=== PATIENT | male | born 1925 | race Caucasian/White ===

== ENCOUNTER 2017-03-25 08:24 | Inpatient (IN) ==
--- NOTE | 2017-03-25 13:24 | Diag Imaging Result Doc PS360 ---
EXAM: CHEST-PORTABLE HISTORY: pneumonia TECHNIQUE: Portable AP COMPARISON: 09/16/2015 FINDINGS: The lungs are well expanded. The heart remains mildly enlarged. The vessels are not distended. No definite infiltrates. I believe there is a tiny right pleural effusion versus pleural thickening. IMPRESSION: Mild cardiomegaly. Electronically signed by Dennis Ledbetter 03/25/2017 1:22 PM
--- NOTE | 2017-03-25 13:37 | EKG Report ---
Test Performed on : 03/25/2017 12:31:48 PM Test Reason : new admit Blood Pressure : / mmHG Vent. Rate : 088 BPM Atrial Rate : 088 BPM P-R Int : 280 ms QRS Dur : 088 ms QT Int : 380 ms P-R-T Axes : 024 035 058 degrees QTc Int : 459 ms Sinus rhythm. with 1st degree AV block. Septal infarct , age undetermined Abnormal ECG When compared with ECG of 21-AUG-2012 08:17, OK interval has increased Septal infarct is now present Confirmed by Jaimee BURGESS, Simone Vaca ([id number]) on 03/26/2017 9:59:22 AM
[2017-03-25 14:02] LABS: MCH 26.7 PG (27-31); MCHC 32.5 g/dL (33-37); MCV 82.1 FL (81-99); MPV 9.1 FL (7.4-10.4); RBC 4.87 XMIL (4.7-6.1)
[2017-03-25 14:21] LABS: ALBUMIN 3.8 g/dL (3.5-5.0); POTASSIUM 4.3 mmol/L (3.5-5.1); TOTAL BILIRUBIN 0.35 mg/dL (0.20-1.00)
[2017-03-25] MEDS ORDERED: DUONEB (A & A) INH SCH ×2 (15:00→17:00)
[2017-03-25] MEDS: ZITHROMAX 500 MG/NS 500 MG/250 ML IVPB IV SCH (15:19)
[2017-03-25] MEDS: ROCEPHIN 1 GM in NS 50 ML IV SCH (17:10)
--- NOTE | 2017-03-25 17:53 | HISTORY AND PHYSICAL ---
HISTORY OF PRESENT ILLNESS: Mr. Kapoor is an 89-year-old white gentleman, a resident of [facility], who is admitted with cough with expectoration, shortness of breath. He has had a chest x-ray. He has pneumonia. He has been treated in the [place] [facility] with antibiotics without much help. He has a mild case of dementia. He has severe osteoarthritis in the knees as well as hips and the lumbar spine. He has chronic dermatitis. He has platelet malfunction. Other details of personal, past, and family history are noncontributory. SOCIAL HISTORY: He is a nonsmoker. Does not drink. MEDICATIONS: Vitamin E . Warfarin. Triamcinolone cream. Tamsulosin. multivitamin. Miconazole cream. Levothyroxine for hypothyroidism. REVIEW OF SYSTEMS: Other than shortness of breath and cough is noncontributory. PHYSICAL EXAMINATION: VITAL SIGNS: Reveal temperature is normal. Pulse 88 per minute, respiratory rate 20 per minute, blood pressure 148/86. HEENT: Head normocephalic. Pupils PERRLA. Fundus examination could not be done. Neck supple. JVP normal. ENT examination unremarkable. There is no evidence of lymphadenopathy, thyroid enlargement, pedal edema, calf tenderness, anemia, cyanosis or clubbing. Pedal pulses well felt. BREAST: Normal chest. Normal inspection. LUNGS: Reveal bilateral basilar rales, more on the right side. PMI in the normal position. HEART: Sounds normal. No murmur, gallop or rub noted. ABDOMEN: Nondistended. Hernial orifices normal. No guarding, rigidity, free fluid, masses, or organomegaly. Bowel sounds normal. RECTAL: Deferred. ROR ENGINEER: Higher functions, patient has some intermittent confusion. Cranial nerves normal. Motor and sensory system examination unremarkable. Deep tendon reflexes normal. Plantars downgoing. Skull and spine examination normal. There are no cerebellar signs or signs of meningeal irritation. LOCOMOTOR: Unremarkable. SKIN: Unremarkable. CLINICAL IMPRESSION: Pneumonia on the right lower lobe. The patient has early dementia, platelet dysfunction, chronic dermatitis, osteoarthritis in both knees. PLAN: Plan to get blood cultures and start him on IV antibiotics. cc: Frederick Bedoya MD
[2017-03-25 18:14] LABS: INR 2.3; PROTIME 25.5 Seconds (9.2-11.7)
[2017-03-25] MEDS: ROBITUSSIN-DM PO SCH (18:44)
[2017-03-25] MEDS: HYDROXYZINE PO SCH (18:44)
[2017-03-25] MEDS: SYSTANE EYE DROPS BOTH EYES SCH ×2 (18:45→22:00)
[2017-03-25] MEDS ORDERED: COUMADIN PO SCH (21:00)
[2017-03-25] MEDS: COLACE PO SCH (21:16)
[2017-03-25] MEDS: FLOMAX PO SCH (21:16)
[2017-03-25] MEDS: ARICEPT PO SCH (21:16)
[2017-03-25] MEDS: BAZA ANTIFUNGAL CREAM TOP SCH (21:17)
[2017-03-25] MEDS: CETAPHIL MOISTURIZING LOT TOP SCH (21:17)
[2017-03-25] MEDS: KENALOG 0.1% OINTMENT TOP SCH (21:18)
[2017-03-25] MEDS: DUONEB (A & A) INH SCH (21:30)
[2017-03-26] MEDS: ROBITUSSIN-DM PO SCH ×7 (03:46→23:22)
[2017-03-26] MEDS: SYNTHROID PO SCH (09:05)
[2017-03-26] MEDS: THERA M PLUS PO SCH (09:05)
[2017-03-26] MEDS: SYSTANE EYE DROPS BOTH EYES SCH ×4 (09:05→22:00)
[2017-03-26] MEDS: HYDROXYZINE PO SCH ×3 (09:05→18:46)
[2017-03-26] MEDS: COLACE PO SCH ×2 (09:05→22:15)
[2017-03-26] MEDS: KENALOG 0.1% OINTMENT TOP SCH ×2 (09:06→22:15)
[2017-03-26] MEDS: CETAPHIL MOISTURIZING LOT TOP SCH ×2 (09:06→22:16)
[2017-03-26] MEDS: BAZA ANTIFUNGAL CREAM TOP SCH ×2 (09:07→22:16)
--- NOTE | 2017-03-26 09:32 | PROGRESS NOTE ---
DATE: 03/26/2017 Mr. Kapoor is doing better. He is recovering from pneumonia. He has dermatitis which is not scabies. He has been followed actively by Dr. 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 -3 cc: Frederick Bedoya MD
[2017-03-26] MEDS: DUONEB (A & A) INH SCH ×3 (11:09→21:29)
[2017-03-26] MEDS: ROCEPHIN 1 GM in NS 50 ML IV SCH (13:19)
[2017-03-26] MEDS: ZITHROMAX 500 MG/NS 500 MG/250 ML IVPB IV SCH (15:11)
[2017-03-26] MEDS: FLOMAX PO SCH (22:15)
[2017-03-26] MEDS: ARICEPT PO SCH (22:16)
[2017-03-26] MEDS: COUMADIN PO SCH (22:16)
[2017-03-26] MEDS ORDERED: ATIVAN IV ONE (23:00)
[2017-03-26 23:32] LABS: ALLEN TEST YES; BE 0.5 mmoll (-3.0-3.0); BLOOD TYPE ARTERIAL; DRAW SITE R RADIAL; METHB 0.8 % (0.0-1.5); O2(CT) 16.1 mL/dL (15.0-23.0); PCO2(98.6) 37 mmHg (35-45); PO2(98.6) 63 mmHg (60-100); SAMPLE BLOOD; SAO2 96.6 % (95.0-100.0); THB 12.2 g/dL (11.5-17.4); pH(98.6) 7.43 (7.35-7.45)
[2017-03-26 23:33] LABS: MODALITY CANNULA
[2017-03-27] MEDS ORDERED: HALDOL IV ONE (01:24)
[2017-03-27] MEDS: DUONEB (A & A) INH SCH ×4 (03:55→20:12)
[2017-03-27] MEDS ORDERED: ATIVAN PO ONE (04:36)
--- NOTE | 2017-03-27 09:22 | PROGRESS NOTE ---
DATE: 03/27/2017 Mr. Kapoor has pneumonia on the right side. He is doing better. He has some expiratory wheezing. He gets intermittent confusion. We will give him some IV Solu-Medrol today. Overall condition is unchanged. -1 cc: Frederick Bedoya MD
[2017-03-27] MEDS: COLACE PO SCH ×2 (10:35→21:39)
[2017-03-27] MEDS: SYNTHROID PO SCH (10:35)
[2017-03-27] MEDS: THERA M PLUS PO SCH (10:35)
[2017-03-27] MEDS: HYDROXYZINE PO SCH ×3 (10:35→18:49)
[2017-03-27] MEDS: SYSTANE EYE DROPS BOTH EYES SCH ×4 (10:36→22:14)
[2017-03-27] MEDS: CETAPHIL MOISTURIZING LOT TOP SCH ×2 (10:37→21:41)
[2017-03-27] MEDS: BAZA ANTIFUNGAL CREAM TOP SCH ×2 (10:37→21:42)
[2017-03-27] MEDS: KENALOG 0.1% OINTMENT TOP SCH ×2 (10:41→21:41)
[2017-03-27] MEDS: NORVASC PO SCH (10:43)
[2017-03-27] MEDS: SOLU-MEDROL IV SCH ×2 (11:11→21:39)
[2017-03-27] MEDS: ROCEPHIN 1 GM in NS 50 ML IV SCH (15:23)
[2017-03-27] MEDS: ZITHROMAX 500 MG/NS 500 MG/250 ML IVPB IV SCH (15:24)
[2017-03-27] MEDS: ROBITUSSIN-DM PO SCH ×3 (18:49→21:39)
[2017-03-27] MEDS: COUMADIN PO SCH (21:39)
[2017-03-27] MEDS: ARICEPT PO SCH (21:39)
[2017-03-27] MEDS: FLOMAX PO SCH (21:39)
[2017-03-28] MEDS: ROBITUSSIN-DM PO SCH ×6 (02:43→22:13)
[2017-03-28] MEDS: DUONEB (A & A) INH SCH ×4 (02:59→20:38)
--- NOTE | 2017-03-28 07:45 | Diag Imaging Result Doc PS360 ---
EXAM: CHEST-PORTABLE INDICATION: pneumonia TECHNIQUE: One view COMPARISON: 03/25/2017 FINDINGS: Small right basilar effusion has increased slightly in size. There is adjacent right basilar atelectasis. No new consolidations are identified. Cardiac silhouette is stable. IMPRESSION: Slight increase in small right basilar effusion. Electronically signed by True Estrada 03/28/2017 7:42 AM
[2017-03-28] MEDS: COLACE PO SCH ×2 (07:59→21:46)
[2017-03-28] MEDS: NORVASC PO SCH (07:59)
[2017-03-28] MEDS: SYNTHROID PO SCH (07:59)
[2017-03-28] MEDS: SOLU-MEDROL IV SCH ×2 (07:59→21:47)
[2017-03-28] MEDS: THERA M PLUS PO SCH (07:59)
[2017-03-28] MEDS: SYSTANE EYE DROPS BOTH EYES SCH ×4 (07:59→21:48)
[2017-03-28] MEDS: CETAPHIL MOISTURIZING LOT TOP SCH ×2 (08:00→21:45)
[2017-03-28] MEDS: BAZA ANTIFUNGAL CREAM TOP SCH ×2 (08:00→21:45)
[2017-03-28] MEDS: HYDROXYZINE PO SCH ×3 (08:01→21:46)
[2017-03-28] MEDS: KENALOG 0.1% OINTMENT TOP SCH ×2 (08:01→21:47)
[2017-03-28] MEDS ORDERED: CALMOSEPTINE OINTMENT TOP PRN (09:45)
[2017-03-28] MEDS: ROCEPHIN 1 GM in NS 50 ML IV SCH (13:49)
--- NOTE | 2017-03-28 14:15 | PROGRESS NOTE ---
DATE: 03/28/2017 Mr. Kapoor is improving however he has some fluid, pleural effusion on the right side. His pneumonia is slowly improving. He is still confused I am going give him some Lasix today and will continue the current management. Will repeat the chest x-ray next 2-3 days. cc: Frederick Bedoya MD
[2017-03-28] MEDS: ZITHROMAX 500 MG/NS 500 MG/250 ML IVPB IV SCH (14:21)
[2017-03-28] MEDS: COUMADIN PO SCH (21:46)
[2017-03-28] MEDS: FLOMAX PO SCH (21:46)
[2017-03-28] MEDS: ARICEPT PO SCH (21:46)
[2017-03-29] MEDS: DUONEB (A & A) INH SCH ×4 (02:47→19:59)
[2017-03-29] MEDS: ROBITUSSIN-DM PO SCH ×6 (06:02→20:11)
[2017-03-29 07:22] LABS: CALCIUM 9.1 mg/dL (8.8-10.2); POTASSIUM 5.1 mmol/L (3.5-5.1)
--- NOTE | 2017-03-29 07:49 | Diag Imaging Result Doc PS360 ---
CHEST-PORTABLE - 03/29/2017 INDICATION: Rt Pleural effusion TECHNIQUE: COMPARISON: 03/28/2017 FINDINGS: Stable trace right pleural effusion. Stable cardiomegaly. No infiltrates. The left lung is clear. IMPRESSION: No change from prior. Electronically signed by Bola Piedra 03/29/2017 7:47 AM
[2017-03-29] MEDS: CETAPHIL MOISTURIZING LOT TOP SCH ×2 (10:26→20:05)
[2017-03-29] MEDS: SYNTHROID PO SCH (10:27)
[2017-03-29] MEDS: COLACE PO SCH ×2 (10:27→20:06)
[2017-03-29] MEDS: LASIX IV SCH (10:27)
[2017-03-29] MEDS: SOLU-MEDROL IV SCH ×2 (10:27→20:07)
[2017-03-29] MEDS: KLOR-CON PO SCH (10:28)
[2017-03-29] MEDS: NORVASC PO SCH (10:28)
[2017-03-29] MEDS: THERA M PLUS PO SCH (10:28)
[2017-03-29] MEDS: HYDROXYZINE PO SCH ×3 (10:29→16:19)
[2017-03-29] MEDS: KENALOG 0.1% OINTMENT TOP SCH ×2 (10:29→20:06)
[2017-03-29] MEDS: BAZA ANTIFUNGAL CREAM TOP SCH ×2 (10:29→20:11)
[2017-03-29] MEDS: SYSTANE EYE DROPS BOTH EYES SCH ×4 (10:30→20:07)
[2017-03-29] MEDS: ROCEPHIN 1 GM in NS 50 ML IV SCH (13:39)
--- NOTE | 2017-03-29 14:09 | PROGRESS NOTE ---
DATE: 03/29/2017 SUBJECTIVE: An 89-year-old white gentleman, admitted to the hospital with pneumonia on IV antibiotics. The patient was receiving IV Zithromax for the right shoulder. It was infiltrated. He had a quite a bit of redness and swelling. Patient was given ice pack and this morning the swelling is much better than what I saw last night. He has IV access on the left side. REVIEW OF SYSTEMS: HEENT: No headache. No vision problem. No sore throat. Neck: No goiter. No lymphadenopathy. Cardiopulmonary: No chest pain, shortness of breath, PND, orthopnea. Gastrointestinal: No nausea, vomiting, abdominal pain. No altered bowel habits and no swelling of legs. Skin: Rash all over the body, noted. Neurologic: No focal symptoms or weakness. PAST MEDICAL HISTORY: Reviewed. PAST SURGICAL HISTORY: Reviewed. MEDICATIONS: Reviewed. ALLERGIES: SULFA DRUGS PHYSICAL EXAMINATION: Vital Signs: Temperature 97, pulse is 93, blood pressure is 160/69 on 2 L nasal cannula 100%. HEENT: Within normal limits. Neck: Supple. Mild redness and swelling over the right shoulder from IV infiltration noted. Chest: Bilateral air entry. Heart: Sounds very distant belly is soft, obese, nontender. Good bowel sounds. No peripheral edema, cyanosis, clubbing. Skin: Maculopapular rash throughout the body noted. No obvious neurological deficits. INVESTIGATIONS: Blood cultures were negative. ABG on room air pH is 7.43, pCO2 37, PO2 63 on 2 L. SMA 7, sodium 145, potassium 5, chloride 101, CO2 20, BUN 39, creatinine 1.5, glucose 168. Chest x-ray: No change from the prior, cardiomegaly, no infiltrates. Trace pleural effusion. ASSESSMENT AND PLAN: 1. An 89-year-old white gentleman, admitted to the hospital with altered mental status with possible bronchopneumonia currently receiving IV ceftriaxone and IV Zithromax improving. 2. Benign prostatic hypertrophy, on Flomax. 3. Chronic allergic dermatitis on triamcinolone. 4. Hypothyroidism on Synthroid. 5. Dementia on Aricept. 6. Hypertension on amlodipine 5 mg daily. 7. History of paroxysmal atrial fibrillation on warfarin 7.5 mg daily. We will check the labs and PT/INR in the morning. 8. Disposition will be by Dr. Bedoya on Friday and level of documentation is 35 minutes. cc: MD Frederick Beckham MD
[2017-03-29] MEDS: ZITHROMAX 500 MG/NS 500 MG/250 ML IVPB IV SCH (16:01)
[2017-03-29] MEDS: COUMADIN PO SCH (20:06)
[2017-03-29] MEDS: ARICEPT PO SCH (20:06)
[2017-03-29] MEDS: FLOMAX PO SCH (20:07)
[2017-03-30] MEDS: ROBITUSSIN-DM PO SCH ×7 (01:15→21:40)
[2017-03-30] MEDS: DUONEB (A & A) INH SCH ×4 (03:18→20:25)
[2017-03-30 06:25] LABS: HEMATOCRIT 38.7 % (42.0-52.0); HEMOGLOBIN 12.4 g/dL (14.0-18.0); MCH 27.1 PG (27-31); MCV 84.7 FL (81-99); MPV 9.3 FL (7.4-10.4); RBC 4.57 XMIL (4.7-6.1)
[2017-03-30 06:46] LABS: CALCIUM 8.7 mg/dL (8.8-10.2); POTASSIUM 4.7 mmol/L (3.5-5.1)
[2017-03-30 07:01] LABS: INR 2.47; PROTIME 27.5 Seconds (9.2-11.7)
[2017-03-30] MEDS: SOLU-MEDROL IV SCH ×2 (08:36→21:28)
[2017-03-30] MEDS: LASIX IV SCH (08:36)
[2017-03-30] MEDS: COLACE PO SCH ×2 (08:36→21:28)
[2017-03-30] MEDS: HYDROXYZINE PO SCH ×3 (08:37→18:04)
[2017-03-30] MEDS: THERA M PLUS PO SCH (08:37)
[2017-03-30] MEDS: NORVASC PO SCH (08:37)
[2017-03-30] MEDS: KLOR-CON PO SCH (08:37)
[2017-03-30] MEDS: SYNTHROID PO SCH (08:37)
[2017-03-30] MEDS: SYSTANE EYE DROPS BOTH EYES SCH ×4 (08:38→21:30)
[2017-03-30] MEDS: CETAPHIL MOISTURIZING LOT TOP SCH ×2 (08:38→21:27)
[2017-03-30] MEDS: BAZA ANTIFUNGAL CREAM TOP SCH ×2 (08:38→21:29)
[2017-03-30] MEDS: KENALOG 0.1% OINTMENT TOP SCH ×2 (08:38→21:29)
[2017-03-30] MEDS: ROCEPHIN 1 GM in NS 50 ML IV SCH (13:58)
--- NOTE | 2017-03-30 15:12 | PROGRESS NOTE ---
DATE: 03/30/2017 SUBJECTIVE: Patient is doing very well. The son is at bedside. REVIEW OF SYSTEMS: None reported. He is anxious to go home. OBJECTIVE: Vital signs: Afebrile, temperature is 98 degrees, pulse is 96, blood pressure is 160/77, nasal cannula 2 L 96%. HEENT: Within normal limits. Neck: Supple. Chest: Clear. Heart: Sounds are regular. Neurologic: No neurologic deficits. Extremities: Right shoulder at the infiltration site has reduced swelling and redness. LABS: CBC: White cell count 8.3, hematocrit 38, platelets 229,000. PT 27, INR 2.4. SMA 7: Sodium 143, potassium 4.7, BUN 39, creatinine 1.4, glucose 164. ASSESSMENT AND PLAN: 1. Altered mental status. Improving. 2. Bronchopneumonia. Better with antibiotics. 3. Chronic allergic dermatitis. Stable. 4. Paroxysmal atrial fibrillation. INR is therapeutic. Hopefully he can go home. LEVEL OF DOCUMENTATION: 15 minutes. cc: MD Frederick Beckham MD
[2017-03-30] MEDS: ZITHROMAX 500 MG/NS 500 MG/250 ML IVPB IV SCH (16:00)
[2017-03-30] MEDS: ARICEPT PO SCH (21:28)
[2017-03-30] MEDS: COUMADIN PO SCH (21:28)
[2017-03-30] MEDS: FLOMAX PO SCH (21:28)
[2017-03-31] MEDS: DUONEB (A & A) INH SCH ×2 (03:02→07:54)
[2017-03-31] MEDS: ROBITUSSIN-DM PO SCH ×3 (04:33→10:28)
[2017-03-31 07:34] VITALS: BP 161/75
--- NOTE | 2017-03-31 09:06 | PROGRESS NOTE ---
DATE: 03/31/2017 Mr. Kapoor is better. He is oriented. He does have very minimal congestion. He has a right- sided pleural effusion. Has mild dementia. We will transfer him to [facility] today. He initially came in with right lower lobe pneumonia. He has been treated with IV Zithromax as well as IV Rocephin for several days. -0 cc: Frederick Bedoya MD
[2017-03-31] MEDS: SOLU-MEDROL IV SCH (09:47)
[2017-03-31] MEDS: SYNTHROID PO SCH (09:47)
[2017-03-31] MEDS: HYDROXYZINE PO SCH ×2 (09:47→12:56)
[2017-03-31] MEDS: COLACE PO SCH (09:47)
[2017-03-31] MEDS: KLOR-CON PO SCH (09:47)
[2017-03-31] MEDS: LASIX IV SCH (09:47)
[2017-03-31] MEDS: THERA M PLUS PO SCH (09:47)
[2017-03-31] MEDS: KENALOG 0.1% OINTMENT TOP SCH (09:48)
[2017-03-31] MEDS: NORVASC PO SCH (09:48)
[2017-03-31] MEDS: CETAPHIL MOISTURIZING LOT TOP SCH (09:49)
[2017-03-31] MEDS: SYSTANE EYE DROPS BOTH EYES SCH (09:49)
[2017-03-31] MEDS: BAZA ANTIFUNGAL CREAM TOP SCH (09:49)
[2017-03-31] MEDS: ROCEPHIN 1 GM in NS 50 ML IV SCH ×2 (12:55→12:56)
--- NOTE | 2017-03-31 13:41 | DISCHARGE SUMMARY ---
ADMISSION DATE: 03/25/2017 DISCHARGE DATE: 03/27/2017 HOSPITAL COURSE: Mr. Kapoor who is a 89-year-old white gentleman, resident of [facility], was brought in because of pneumonia on the right side. The pneumonia and has right- sided trace pleural effusion. He is alert. Chest x-rays have been done for several occasions. CBC was unremarkable. Hemoglobin 12.4. INR was 2.47. He has been on Coumadin. ABGs revealed pH 7.43, pCO2 37, PO2 63 and electrolytes are normal. BUN has gone up because of IV Lasix therapy. Overall condition is unchanged otherwise. I will continue with the current management and transfer him today to [facility]. FINAL DIAGNOSIS: 1. Pneumonia right lower lobe. 2. Right pleural effusion. 3. Dementia. 4. Chronic dermatitis. 5. Platelet dysfunction. 6. Severe osteoarthritis in both knees. The patient is wheelchair bound. cc: Frederick Bedoya MD
== END 2017-03-31 14:54 ==
LOC: DIRADM 08:24 → 3N 11:16
PROVIDERS: ADMIT Internal Medicine; ATTEND Internal Medicine